=== PATIENT | male | born 2000 | race African-American/Black ===

== ENCOUNTER 2020-12-10 17:08 | Emergency (ER) | payer MEDICAID, SELFPAY ==
[2020-12-10 17:29] VITALS: BP 126/77; PULSE 61; RESP 20; TEMP 36.4; O2SAT 100
--- NOTE | 2020-12-10 17:39 | ED.GENADULT ---
HPI - General Adult General Chief complaint: Extremity Injury, Lower Stated complaint: Injury on toe Time Seen by Provider: 12/10/20 17:31 Source: patient Mode of arrival: ambulatory Limitations: no limitations History of Present Illness HPI narrative: Patient presents today complaining of a possible ingrown toenail to the left great toe since April. He has been cleaning it with peroxide and alcohol and soaking in epsom salt without resolution of symptom. States he also has some green drainage from the area occasionally. He has not had it evaluated prior to today. He is not taking any oral medications for symptoms prior to arrival. He usually needs to keep it covered due to drainage or bleeding. MD complaint: Possible ingrown toenail Related Data Allergies Allergy/AdvReac Type Severity Reaction Status Date / Time No Known Allergies Allergy Verified 12/10/20 17:24 Review of Systems Review of Systems: Narrative: CONSTITUTIONAL: Denies body aches, fever, chills, or sweats. EYES: Denies visual changes, redness, or discharge. ENT: Denies rhinorrhea, congestion, sore throat, or otalgia. CARDIOVASCULAR: Denies chest pain, palpitations, or edema. RESPIRATORY: Denies cough or dyspnea. GASTROINTESTINAL: Denies abdominal pain, nausea, vomiting, or diarrhea. GENITOURINARY: Denies dysuria or hematuria. SKIN: Denies rash, itching, or wounds. Left ingrown toenail MUSCULOSKELETAL: Denies back pain, joint pain, or myalgia. NEUROLOGIC: Denies headache, numbness, tingling, or weakness. PSYCH: Denies depression or anxiety. PMFSH Comments At time of signature, I have reviewed and agree with nursing past medical, surgical, social and family history unless otherwise noted. Please see nursing chart for further information. There is no relevant family history pertinent to the presenting complaint Exam Narrative: Exam Narrative: GENERAL: Well-appearing, well-nourished, and in no acute distress. HEAD: Normocephalic, atraumatic. EYES: EOMI. No redness or drainage. Conjunctivae normal. ENT: Mucous membranes pink and moist. NECK: Normal AROM. CHEST: No respiratory distress. EXTREMITIES: Normal range of motion. No edema. Left great toe: Toenail is overgrown. Medial portion of the nail fold has moderate amount of granulation tissue that has overgrown. It is erythematous and tender to palpation. The nail fold has a mild amount of active bleeding present. There is green purulent discharge on patient's dressing. Distal sensation intact. Capillary refill normal. Range of motion normal. SKIN: Warm, dry, no rash. Capillary refill normal. Normal skin turgor. NEURO: No focal deficits. Alert and oriented x3. Gait steady. PSYCH: Normal affect. No signs of depression or anxiety. Course Vital Signs Vital signs: Vital Signs Temperature 97.5 F L 12/10/20 17:29 Pulse Rate 61 12/10/20 17:29 Respiratory Rate 20 12/10/20 17:29 Blood Pressure 126/77 12/10/20 17:29 Pulse Oximetry 100 12/10/20 17:29 Temperature 97.5 F L 12/10/20 17:29 Pulse Rate 61 12/10/20 17:29 Respiratory Rate 20 12/10/20 17:29 Blood Pressure 126/77 12/10/20 17:29 Pulse Oximetry 100 12/10/20 17:29 Reviewed. Pt has been instructed to follow up with his PCP regarding his elevated blood pressure today. Medical Decision Making Differential Diagnosis Differential Diagnosis: Ingrown toenail, cellulitis, abscess, paronychia Vital Signs Vital Signs: Vital Signs Temperature 97.5 F L 12/10/20 17:29 Pulse Rate 61 12/10/20 17:29 Respiratory Rate 20 12/10/20 17:29 Blood Pressure 126/77 12/10/20 17:29 Pulse Oximetry 100 12/10/20 17:29 Temperature 97.5 F L 12/10/20 17:29 Pulse Rate 61 12/10/20 17:29 Respiratory Rate 20 12/10/20 17:29 Blood Pressure 126/77 12/10/20 17:29 Pulse Oximetry 100 12/10/20 17:29 Critical Care Time Critical Care Time Critical Care Time: No Discharge Plan Discharge Clinical Impressio
== END 2020-12-10 17:45 | disposition home or self-care (01) ==
PROVIDERS: Emergency Provider Nurse Practitioner
DX: L60.0 Ingrowing nail (principal)
CPT/HCPCS: 99213; G0463

== ENCOUNTER 2022-01-04 16:40 | Emergency (ER) | payer OTHER, MEDICAID, SELFPAY ==
[2022-01-04 16:49] VITALS: BP 138/93; PULSE 88; RESP 16; TEMP 37.2; O2SAT 99
--- NOTE | 2022-01-04 16:57 | ED.EXTPRO ---
HPI - Extremity Problem General Chief complaint: Skin/Abscess/Foreign Body Stated complaint: left 1st digit toe Time Seen by Provider: 01/04/22 16:55 Source: patient, RN notes reviewed and old records reviewed Mode of arrival: ambulatory Limitations: no limitations History of Present Illness HPI Narrative: 21-year-old male comes to the [facility] with infection, swelling and pain to the left first toe. History of ingrown toenail several months ago. Had seen a fur buyer who cut out part of the toenail. Patient reports that he has an appointment with the fur buyer on January 10. Has soaked his foot one time since Monday, 6 days ago Related Data Allergies Allergy/AdvReac Type Severity Reaction Status Date / Time No Known Allergies Allergy Verified 12/10/20 17:24 Review of Systems Review of Systems: All systems reviewed & are unremarkable except as noted in HPI and below Constitutional: Constitutional: Reports no additional constitutional complaints, Denies chills and Denies fever(s) Eyes: Eyes: Reports no additional eye complaints ENT: Reports system reviewed and no additional complaints, except as documented Cardiovascular: Cardiovascular: Reports no additional cardiovascular complaints Respiratory: Respiratory: Reports no additional respiratory complaints Gastrointestinal: Gastrointestinal: Reports no additional gastrointestinal complaints Musculoskeletal: Musculoskeletal: Reports no additional musculoskeletal complaints Integumentary/Breasts: Skin/Breast: Reports as per HPI and Reports swelling Comments: Redness, pain and swelling around the left great toenail Neurologic: Reports system reviewed and no additional complaints, except as documented Psychiatric: Psychiatric: Reports no additional psychiatric complaints Allergic/Immunologic: Allergic/Immunologic: Reports no additional allergic/immunologic complaints PMFSH Comments At the time of my signature, I reviewed and agree with the nursing past medical, surgical, social, and family history. There is no relevant family history pertinent to the patient complaint. Exam Const: General: healthy appearing, no acute distress and alert Nutritional Appearance: well nourished Orientation/consciousness: patient oriented x3 Limitations: no limitations HENMT: Head: normal to inspection Ears: external ears normal Eyes: Pupils: Equal, round and reactive pupils present Neck: Neck: normal visual inspection, no lymphadenopathy and no meningeal signs Chest: Chest palpation & inspection: normal inspection of the chest Resp: Effort & Inspection: normal respiratory effort and no use of accessory muscles Auscultation: clear to auscultation bilaterally, no crackles, no rales, no rhonchi and no wheezes Cardio: Rate: regular rate Rhythm: regular rhythm GI: GI Palp: Yes Soft to palpation and No Tenderness to palpation present (GI) Skin: General skin exam: normal color Rashes: no rashes Other: Redness, swelling and discharge around left great toenail bilateral. Area is already draining. Does not need to open up. Neuro: General: patient oriented x3, moves all extremities, no meningeal signs and no focal motor deficits Cranial nerves: Yes Equal, round and reactive pupils present Speech: normal speech Gait exam (Neuro): Normal gait present Extrem: General: normal to inspection Psych: Appearance: grossly normal and well kempt Mental Status: mental status grossly normal Affect: normal affect Attitude: cooperative Thought content: Yes Normal thought content present Course Course Emergency Course: Discharge instructions reviewed with patient, as well as provided in writing per nursing staff. The instructions also include specific and strict return/GO TO THE ER as well as f/u information. All questions have been answered, and the patient deny any further questions with discharge and discharge plan. Some parts of this dictation were generated by voice recognition sof
== END 2022-01-04 17:42 | disposition home or self-care (01) ==
PROVIDERS: Emergency Provider Nurse Practitioner
DX: L03.032 Cellulitis of left toe (principal); L60.0 Ingrowing nail
CPT/HCPCS: 87070; 87075; 87147; 87181; 87186; 87205; 99213; G0463